=== PATIENT | male | born 1950 | race Caucasian/White ===

== ENCOUNTER 2018-01-29 03:24 | Emergency (ER) | payer MEDICARE, BC ==
[2018-01-29 04:22] LABS: #Basophils 0.1 thou/uL (0.0-0.2); #Eosinphils 0.3 thou/uL (0.0-0.7); #Lymphocytes 2.3 thou/uL (1.20-3.40); #Neutrophils 6.3 thou/uL (1.40-6.50); %Basophils 1.3 % (0.0-1.0); %Eosinophils 2.6 % (0.0-10.0); %Lymphocytes 22.7 % (21.0-51.0); %Monocytes 10.2 % (0.0-10.0); %Neutrophils 63.1 % (42.0-75.0); Hemoglobin 17.5 g/dL (14.0-18.0); Mean Corpuscular HGB CONC 34.5 g/dL (32.0-36.0); Mean Corpuscular Hemoglobin 27.7 pg (27.0-31.0); Mean Corpuscular Volume 80.2 fL (78.0-98.0); Mean Platelet Volume 6.6 fL (7.4-10.4); Platelet Count 176 thou/uL (130-400); RBC Distribution Width 13.4 % (11.5-14.5); Red Blood Cell (RBC) Count 6.33 mill/uL (4.70-6.10); White Blood Cell (WBC) Count 9.9 thou/uL (4.8-10.8)
[2018-01-29 04:35] LABS: ALT (SGPT) 27 U/L (8-55); AST (SGOT) 18 U/L (5-34); Albumin 3.9 g/dL (3.4-4.8); Alkaline Phosphatase 84 U/L (40-150); Anion Gap 16 mmol/L (10-20); BUN (Urea Nitrogen) 24 mg/dL (8.4-25.7); Bilirubin, Total 0.4 mg/dL (0.2-1.2); Calc. Creatinine Clearance 0 mL/min (70-130); Calcium 9.4 mg/dL (7.8-10.44); Carbon Dioxide 18 mmol/L (23-31); Chloride 112 mmol/L (98-107); Estimated GFR-MDRD 73; Globulin 2.7 g/dL (2.4-3.5); Glucose 148 mg/dL (80-115); Potassium 4.1 mmol/L (3.5-5.1); Protein, Total 6.6 g/dL (5.8-8.1); Sodium 142 mmol/L (136-145)
[2018-01-29 04:36] LABS: CKMB 4.6 ng/mL (0-6.6); Troponin I Less than 0.010 ng/mL (< 0.028)
[2018-01-29] MEDS ORDERED: methylPREDNISolone Sod Succ/PF 125 MG/2 ML VIAL ONE (05:01)
--- NOTE | 2018-01-29 08:41 | RAD ---
CHEST 2 VIEWS: DATE: 01/29/18. COMPARISON: Comparison is made with a 04/08/05 study. FINDINGS: The heart is mildly enlarged, but there are no congestive changes, pleural effusions. Or acute pulmon lisseth infiltrates. No edema was seen. There has been a prior CABG. Some of the sternal wires are bro patricio and one is displaced towards the left side of the chest. IMPRESSION: Mild cardiomegaly, but no acute findings. POS: HOME
== END 2018-01-29 05:10 | disposition home or self-care (01) ==
LOC: BURERS 03:24
DX: J45.991 Cough variant asthma (principal); I50.9 Heart failure, unspecified; Z79.82 Long term (current) use of aspirin; Z79.899 Other long term (current) drug therapy
CPT/HCPCS: 36415; 71046; 80053; 82553; 83880; 84484; 85025; 85379; 93005; 94640; 96374; J2930; J7620

== ENCOUNTER 2022-01-18 18:30 | Emergency (ER) | payer MEDICARE, BC ==
[2022-01-18] MEDS ORDERED: Rocuronium Bromide 10 MG/ML (10ML VIAL) IVPB ONE (18:31)
[2022-01-18] MEDS ORDERED: Fentanyl 100 MCG/2 ML VIAL ONE ×2 (18:36→18:59)
[2022-01-18 19:02] LABS: INR-International Normal Ratio 1.1; Prothrombin Time 14.8 sec (12.0-14.7)
[2022-01-18 19:04] LABS: PTT 34.5 sec (22.9-36.1)
[2022-01-18 19:10] LABS: Band 9 % (5-11); Hemoglobin 16.1 g/dL (14.0-18.0); Lymphocytes 26 % (21-51); MDiff Complete? YES; Mean Corpuscular HGB CONC 32.5 g/dL (32.0-36.0); Mean Corpuscular Hemoglobin 28.6 pg (27.0-31.0); Mean Platelet Volume 7.4 fL (7.4-10.4); Monocytes 2 % (0-10); Neutrophil 63 % (42-75); Platelet Count 253 thou/uL (130-400); RBC Distribution Width 15.4 % (11.5-14.5); Red Blood Cell (RBC) Count 5.64 mill/uL (4.70-6.10); White Blood Cell (WBC) Count 23.8 thou/uL (4.8-10.8)
[2022-01-18 19:12] LABS: ALT (SGPT) 42 U/L (8-55); AST (SGOT) 62 U/L (5-34); Albumin 3.2 g/dL (3.4-4.8); Alkaline Phosphatase 133 U/L (40-110); Anion Gap 25 mmol/L (10-20); BUN (Urea Nitrogen) 29 mg/dL (8.4-25.7); Bilirubin, Total 0.3 mg/dL (0.2-1.2); Calc. Creatinine Clearance 0 mL/min (70-130); Carbon Dioxide 17 mmol/L (23-31); Chloride 105 mmol/L (98-107); Estimated GFR 37; Globulin 2.8 g/dL (2.4-3.5); Glucose 158 mg/dL (83-110); Potassium 4.6 mmol/L (3.5-5.1); Sodium 142 mmol/L (136-145)
[2022-01-18 19:30] LABS: CKMB 3.1 ng/mL (0-6.6)
[2022-01-18 19:52] LABS: Bilirubin Negative (Negative); Blood, Urine Small (Negative); Glucose, Urine (Dipstick) Negative (Negative); Ketone, Urine Negative (Negative); Leukocyte Negative (Negative); Nitrite Negative (Negative); Protein, Urine (Dipstick) > or equal to 300 mg/dL (Neg-Trace); Specific Gravity, Urine 1.025 (1.005-1.030); Urobilinogen 0.2 mg/dL (Less than 2)
[2022-01-18 19:59] LABS: Bacteria/HPF 1+ HPF (None Seen); Clarity Hazy (Clear)
[2022-01-18 20:38] LABS: SARS-CoV-2 NAA Rapid Test Not Detected (NotDetected)
== END 2022-01-18 20:00 | disposition short-term general hospital (02) ==
LOC: BURERS 18:30
DX: S00.83XA Contusion of other part of head, initial encounter (principal); I46.9 Cardiac arrest, cause unspecified; I45.10 Unspecified right bundle-branch block; R77.8 Other specified abnormalities of plasma proteins; I50.9 Heart failure, unspecified; W22.03XA Walked into furniture, initial encounter; Z20.822 Contact with and (suspected) exposure to COVID-19; Z95.1 Presence of aortocoronary bypass graft; Z79.82 Long term (current) use of aspirin; Z79.899 Other long term (current) drug therapy
CPT/HCPCS: 31500; 36415; 51702; 71045; 80053; 81003; 81015; 82553; 84484; 85025; 85610; 85730; 93005; 96374; J3010; U0002